=== PATIENT | female | born 1960 | race Caucasian/White ===

== ENCOUNTER 2018-05-08 14:42 | Emergency (ER) | payer MEDICARE, MEDICAID ==
[~2018-05-08] VITALS: Ht 160 cm; Wt 57.3 kg
[2018-05-08 14:44] VITALS: Ht 160 cm; Wt 57.3 kg
[2018-05-08] MEDS ORDERED: METOPROLOL TART50 MG PO (14:48)
[2018-05-08] MEDS ORDERED: ZOLOFT100 MG PO (14:48)
[2018-05-08] MEDS ORDERED: CATAPRES0.1 MG PO (14:48)
[2018-05-08] MEDS ORDERED: NORVASC10 MG PO (14:48)
[2018-05-08] MEDS ORDERED: ALENDRONATE SOD10 MG PO (14:49)
[2018-05-08] MEDS ORDERED: NORCO 10-325 TA1 TAB (14:49)
[2018-05-08] MEDS ORDERED: XANAX1 MG PO (14:49)
[2018-05-08 15:15] LABS: BASOPHILS 0.5 % (0-2); EOSINOPHILS 1.4 % (0-7); HEMATOCRIT 40.1 % (36.0-48.0); HEMOGLOBIN 13.5 g/dL (12-16); IMMATURE GRANULOCYTES 0.1 % (0-5); LYMPHOCYTES 29.2 % (15-50); MCH 29.6 pg (26.0-34.0); MCHC 33.7 g/dL (31.0-37.0); MCV 87.9 fL (80.0-100.0); MEAN PLATELET VOLUME 9.3 fL (7.4-10.4); MONOCYTES 8.6 % (2-11); NEUTROPHILS 60.2 % (40-80); PLATELET COUNT 213 10x3/uL (130-400); RBC 4.56 10x6/uL (4.00-5.40); RDW 13.6 % (11.5-14.5); WBC 7.9 10x3/uL (4.8-10.8)
[2018-05-08 15:31] LABS: ALBUMIN 4.2 g/dL (3.4-5.0); ALKALINE PHOSPHATASE 87 U/L (46-116); ALT (SGPT) 51 U/L (10-68); BILIRUBIN - TOTAL 0.36 mg/dL (0.2-1.3); CALC OSMOLALITY 271 mosm/kg (275-300); CALCIUM 9.3 mg/dL (8.5-10.1); CARBON DIOXIDE 24.9 mmol/L (21.0-32.0); CHLORIDE - SERUM 101 mmol/L (98-107); CREATININE - SERUM 1.1 mg/dL (0.6-1.3); POTASSIUM - SERUM 3.9 mmol/L (3.5-5.1); PROTEIN - SERUM 7.8 g/dL (6.4-8.2); SODIUM 137 mmol/L (136-145); UREA NITROGEN 13 mg/dL (7-18); eGFR NON AFRICAN AMERICAN 54 mL/min (90-120)
[2018-05-08 15:32] LABS: GLUCOSE 69 mg/dL (74-106)
[2018-05-08 15:40] LABS: CKMB 10.2 U/L (0.0-3.6)
[2018-05-08 17:54] LABS: CREATINE KINASE 2164 UL (21-215); TROPONIN-I < 0.017 ng/mL (0.000-0.060)
[2018-05-08 17:55] LABS: CKMB 10.2 U/L (0.0-3.6)
[2018-05-08 19:50] VITALS: BP 132/85
== END 2018-05-08 19:51 | disposition home or self-care (01) ==
LOC: D.ER 14:42
PROVIDERS: Family Medicine
DX: R74.8 Abnormal levels of other serum enzymes (principal); E74.04 McArdle disease; I10 Essential (primary) hypertension

== ENCOUNTER 2018-08-27 19:54 | Observation (INO) | payer MEDICARE, MEDICAID ==
[~2018-08-27] VITALS: Ht 160 cm; Wt 54.5 kg
[~2018-08-27 19:54] MED LIST: ALENDRONATE SOD10 MG PO; CATAPRES0.1 MG PO; METOPROLOL TART50 MG PO; NORCO 10-325 TA1 TAB; NORVASC10 MG PO; XANAX1 MG PO; ZOLOFT100 MG PO
[2018-08-27 20:34] LABS: BASOPHILS 0.3 % (0-2); EOSINOPHILS 0.9 % (0-7); HEMATOCRIT 39.4 % (36.0-48.0); HEMOGLOBIN 13.5 g/dL (12-16); IMMATURE GRANULOCYTES 0.2 % (0-5); LYMPHOCYTES 28.6 % (15-50); MCH 30.8 pg (26.0-34.0); MCHC 34.3 g/dL (31.0-37.0); MEAN PLATELET VOLUME 9.1 fL (7.4-10.4); MONOCYTES 8.1 % (2-11); NEUTROPHILS 61.9 % (40-80); RBC 4.38 10x6/uL (4.00-5.40); RDW 13.6 % (11.5-14.5); WBC 9.8 10x3/uL (4.8-10.8)
[2018-08-27 20:37] LABS: APPEARANCE CLEAR (CLEAR); BILIRUBIN NEGATIVE (NEGATIVE); COLOR YELLOW (YELLOW); GLUCOSE NEGATIVE (NEGATIVE); KETONE NEGATIVE (NEGATIVE); NITRITE NEGATIVE (NEGATIVE); PROTEIN NEGATIVE (NEGATIVE); SPECIFIC GRAVITY 1.015 (1.005-1.020); UROBILINOGEN NORMAL (NORMAL)
[2018-08-27 20:39] LABS: BACTERIA FEW /hpf (NONE SEEN); RED CELLS - URINE 0-5 /hpf (0-5); WHITE CELLS - URINE OCC /hpf (0-5)
[2018-08-27 21:12] LABS: ALBUMIN 4.1 g/dL (3.4-5.0); ALKALINE PHOSPHATASE 92 U/L (46-116); ALT (SGPT) 40 U/L (10-68); CALC OSMOLALITY 281 mosm/kg (275-300); CARBON DIOXIDE 24.3 mmol/L (21.0-32.0); CHLORIDE - SERUM 104 mmol/L (98-107); CREATININE - SERUM 0.9 mg/dL (0.6-1.3); GLUCOSE 101 mg/dL (74-106); POTASSIUM - SERUM 3.8 mmol/L (3.5-5.1); PROTEIN - SERUM 7.5 g/dL (6.4-8.2); SODIUM 141 mmol/L (136-145); UREA NITROGEN 16 mg/dL (7-18); eGFR NON AFRICAN AMERICAN 68 mL/min (90-120)
[2018-08-27 21:19] LABS: PLATELET COUNT 274 10x3/uL (130-400)
[2018-08-27 21:32] LABS: CKMB 4.1 U/L (0.0-3.6); CREATINE KINASE 1724 UL (21-215)
[2018-08-27 22:31] VITALS: BP 138/85
--- NOTE | 2018-08-27 23:08 | NUR ---
PT REPORT CALLED TO NURSE LISA.
--- NOTE | 2018-08-27 23:30 | NUR ---
PT ARRIVED TO FLOOR VIA WHEELCHAIR. AMBULATED TO BED WITHOUT DIFFICULTY. STATES PAIN 8/10 IN LEGS, JUST RECIEVED MORPHINE IN ER. ALERT AND ORIENTED. STATES SHE HAS BEEN HAVING SOME WEAKNESS. IV RIGHT WRIST INFUSING NS @ 125. WITHOUT NEEDS AT THIS TIME. CL IN REACH, WILL CONT TO MONITOR
[2018-08-27 23:49] VITALS: Ht 160 cm; Wt 54.5 kg
[2018-08-28] VITALS: BP 92/53
[2018-08-28 03:00] VITALS: BP 123/73
[2018-08-28 07:35] LABS: CREATINE KINASE 1078 UL (21-215)
--- NOTE | 2018-08-28 07:45 | NUR ---
PT RESTING IN BED. AROUSED BY VERBAL STIMULI. DENIES ANY NEEDS. NO S/S OF ACUTE DISTRESS. CL IN PLACE.
[2018-08-28 08:49] VITALS: BP 128/84
[2018-08-28 12:23] LABS: BASOPHILS 0.4 % (0-2); EOSINOPHILS 1.7 % (0-7); HEMATOCRIT 36.5 % (36.0-48.0); HEMOGLOBIN 12.1 g/dL (12-16); IMMATURE GRANULOCYTES 0.3 % (0-5); LYMPHOCYTES 35.1 % (15-50); MCH 30.4 pg (26.0-34.0); MCHC 33.2 g/dL (31.0-37.0); MCV 91.7 fL (80.0-100.0); MEAN PLATELET VOLUME 9.3 fL (7.4-10.4); MONOCYTES 10.5 % (2-11); PLATELET COUNT 245 10x3/uL (130-400); RBC 3.98 10x6/uL (4.00-5.40); RDW 13.9 % (11.5-14.5)
[2018-08-28 12:29] LABS: WBC 7.3 10x3/uL (4.8-10.8)
--- NOTE | 2018-08-28 12:40 | NUR ---
CO MARCUS. SPOKE WITH Day BERNAL APN WHO GAVE VO FOR TYLENOL 650MG Q 6 PRN. NO S/S OF ACUTE DISTRESS. CL IN PLACE.
[2018-08-28 12:43] LABS: ALBUMIN 3.4 g/dL (3.4-5.0); ALKALINE PHOSPHATASE 78 U/L (46-116); ALT (SGPT) 37 U/L (10-68); BILIRUBIN - TOTAL 0.36 mg/dL (0.2-1.3); CALC OSMOLALITY 285 mosm/kg (275-300); CALCIUM 8.2 mg/dL (8.5-10.1); CARBON DIOXIDE 22.9 mmol/L (21.0-32.0); CHLORIDE - SERUM 107 mmol/L (98-107); CREATININE - SERUM 0.7 mg/dL (0.6-1.3); GLUCOSE 105 mg/dL (74-106); POTASSIUM - SERUM 3.5 mmol/L (3.5-5.1); PROTEIN - SERUM 6.3 g/dL (6.4-8.2); SODIUM 143 mmol/L (136-145); UREA NITROGEN 14 mg/dL (7-18); eGFR NON AFRICAN AMERICAN > 90 mL/min (90-120)
[2018-08-28 13:39] VITALS: BP 146/85
--- NOTE | 2018-08-28 13:44 | MORECARE ---
CASE MANAGEMENT DISCHARGE SUMMARY PATIENT: RHONDA GARCÍA UNIT: [id number] ADM DATE: 08/27/18 AGE: 58 : 60 SEX: F ROOM/BED: D.2203 AUTHOR: LIS DOUGLAS PHYSICIAN: REFERRING PHYSICIAN: JOI BRIAN MD DATE OF SERVICE: 08/28/18 Discharge Plan Patient Name: RHONDA GARCÍA [facility] [facility] 1960 Planned Disposition: Home Anticipated Discharge Date: Discharge Date: Expected LOS: Initial Reviewer: KILLIAN Initial Review Date: 08/28/2018 Generated: 08/28/18 2:44 pm DCPIA - Discharge Planning Initial Assessment Updated by KILLIAN: Naida Chery on 08/28/18 1:43 pm * Is the patient Alert and Oriented? Yes * How many steps to enter\exit or inside your home? * PCP CORDELIA * Pharmacy [facility] [address] * Preadmission Environment Home with Family * ADLs Independent * List name and contact numbers for known caregivers / representatives who currently or will assist patient after discharge: SISTER SHERYL BARRETT [phone] OR SON GIGI GARCÍA [phone] * Verbal permission to speak to the caregivers and representatives has been obtained from the patient. N/A * Additional services required to return to the preadmission environment? No * Can the patient safely return to the preadmission environment? Yes * Has this patient been hospitalized within the prior 30 days at any hospital? No Patient Name: RHONDA GARCÍA Page [id number] at 1344 All edits/amendments must be made on the electronic document DICTATION DATE: 08/28/18 1343 ORGAN ASSEMBLER: RAKEL 08/28/18 1343 RPT#: [id number] DC DATE: STATUS: ADM IN [facility] [address] [place] [address] END OF REPORT
--- NOTE | 2018-08-28 13:51 | MORECARE ---
CASE MANAGEMENT DISCHARGE SUMMARY PATIENT: RHONDA GARCÍA UNIT: [id number] ADM DATE: 08/27/18 AGE: 58 : 60 SEX: F ROOM/BED: D.2203 AUTHOR: MISAELDOC PHYSICIAN: REFERRING PHYSICIAN: JOI BRIAN MD DATE OF SERVICE: 08/28/18 Discharge Plan Patient Name: RHONDA GARCÍA Facility: [facility]:[place] : 1960 Planned Disposition: Home Anticipated Discharge Date: Discharge Date: Expected LOS: Initial Reviewer: [email or web address] Initial Review Date: 08/28/2018 Generated: 08/28/18 2:51 pm Comments DCP- Discharge Planning Updated by [email or web address]: Naida Chery on 08/28/18 12:[address] RHONDA GARCÍA provided verbal consent to discuss current and ongoing needs with/in the presence of:Patient Name: RHONDA GARCÍA Admission Status: ER Accout number: [id number] Admission Date: 08-27-2018 : 1960 Admission Diagnosis: Attending: LILLIAN BRIAN Current LOS: 1 Anticipated DC Date: Planned Disposition: Home Primary Insurance: [facility] MEDICARE SOLUTIONS Discharge Planning Comments: CM MET WITH PT AFTER VERBAL CONSENT TO DO INITIAL CM ASSESSMENT. CM EXPLAINED THE ROLE OF A CM AND SERVICES AVAILABLE LIKE HOME HEALTH, REHAB AND DME. PT STATED HER PLAN IS TO RETURN HOME WITH SISTER. DENIES ANY CM NEEDS AT THIS TIME. SON OR SISTER WILL DRIVE HOME AT DC. PT STATES HER HOME IS A SAFE DC PLAN. CM WILL CONTINUE TO FOLLW DURING STAY Follow Up Rep: Naida Chery DCPIA - Discharge Planning Initial Assessment Updated by [email or web address]: Naida Chery on 08/28/18 1:43 pm * Is the patient Alert and Oriented? Yes * How many steps to enter\exit or inside your home? * PCP CORDELIA * Pharmacy [facility] [address] * Preadmission Environment Home with Family * ADLs Independent * List name and contact numbers for known caregivers / representatives who currently or will assist patient after discharge: SISTER SHERYL BARRETT [phone] OR SON GIGI GARCÍA [phone] * Verbal permission to speak to the caregivers and representatives has been obtained from the patient. N/A * Additional services required to return to the preadmission environment? No * Can the patient safely return to the preadmission environment? Yes * Has this patient been hospitalized within the prior 30 days at any hospital? No Last DP export: 08/28/18 12:44 p Patient Name: RHONDA GARCÍA Page [id number] at 1351 All edits/amendments must be made on the electronic document DICTATION DATE: 08/28/181349 WIRE PHOTO OPERATOR NEWS: RAKEL 08/28/18 135 RPT#: [id number] DC DATE: STATUS: ADM IN [facility] [address] [place] [address] END OF REPORT
[2018-08-28 17:09] VITALS: BP 116/68
--- NOTE | 2018-08-28 17:49 | NUR ---
PT SITTING UP IN BED EATING DINNER. NO S/S OF ACUTE DISTRESS. REPORTS VELAZQUEZ OF "3". NO S/S OF ACUTE DISTRESS. CL IN PLACE.
[2018-08-28 20:18] VITALS: BP 136/78
[2018-08-29 02:08] VITALS: BP 143/78
--- NOTE | 2018-08-29 05:03 | NUR ---
PT IN BED IN SUPINE POSITION. ALERT AND ORIENTED X4. RESPIRATIONS EVEN AND UNLABORED. VS STABLE AND AFEBRILE. NO VISUAL CUES OF DISTRESS NOTED. DENIES ANY OTHER NEEDS AT THIS TIME. BED LOW, SIDE RAILS UP X2. CALL LIGHT IN REACH. WILL CONTINUE TO MONITOR.
[2018-08-29 05:34] VITALS: BP 113/73
[2018-08-29 06:18] LABS: BASOPHILS 0.3 % (0-2); EOSINOPHILS 1.8 % (0-7); HEMATOCRIT 35.3 % (36.0-48.0); HEMOGLOBIN 11.9 g/dL (12-16); IMMATURE GRANULOCYTES 0.1 % (0-5); LYMPHOCYTES 30.4 % (15-50); MCH 29.9 pg (26.0-34.0); MCHC 33.7 g/dL (31.0-37.0); MEAN PLATELET VOLUME 9.5 fL (7.4-10.4); MONOCYTES 9.1 % (2-11); NEUTROPHILS 58.3 % (40-80); PLATELET COUNT 216 10x3/uL (130-400); RBC 3.98 10x6/uL (4.00-5.40); RDW 13.3 % (11.5-14.5); WBC 6.8 10x3/uL (4.8-10.8)
[2018-08-29 06:30] LABS: MCV 88.7 fL (80.0-100.0)
[2018-08-29 06:47] LABS: ALBUMIN 3.4 g/dL (3.4-5.0); ALKALINE PHOSPHATASE 74 U/L (46-116); ALT (SGPT) 36 U/L (10-68); BILIRUBIN - TOTAL 0.42 mg/dL (0.2-1.3); CALC OSMOLALITY 283 mosm/kg (275-300); CALCIUM 8.5 mg/dL (8.5-10.1); CARBON DIOXIDE 25.1 mmol/L (21.0-32.0); CHLORIDE - SERUM 108 mmol/L (98-107); CKMB 1.8 U/L (0.0-3.6); CREATINE KINASE 636 UL (21-215); CREATININE - SERUM 0.6 mg/dL (0.6-1.3); GLUCOSE 89 mg/dL (74-106); POTASSIUM - SERUM 3.5 mmol/L (3.5-5.1); PROTEIN - SERUM 6.3 g/dL (6.4-8.2); SODIUM 144 mmol/L (136-145); UREA NITROGEN 7 mg/dL (7-18); eGFR NON AFRICAN AMERICAN > 90 mL/min (90-120)
[2018-08-29 08:57] VITALS: BP 141/82
[2018-08-29] MEDS ORDERED: PROTONIX40 MG PO (12:01)
--- NOTE | 2018-08-29 13:29 | NUR ---
DC HOME VOICE UNDERSTANDING OF DC INSTRUCTION. IV DC. WAS IN STABLE CONDITION UPON DEPARTURE.
--- NOTE | 2018-08-30 14:59 | MORECARE ---
CASE MANAGEMENT DISCHARGE SUMMARY PATIENT: RHONDA GARCÍA UNIT: [id number] ADM DATE: 08/27/18 AGE: 58 : 60 SEX: F ROOM/BED: D.2203 AUTHOR: MISAEL,DOC PHYSICIAN: REFERRING PHYSICIAN: JOI BRIAN MD DATE OF SERVICE: 08/30/18 Discharge Plan Patient Name: RHONDA GARCÍA Facility: [facility]:[place] : 1960 Planned Disposition: Home Anticipated Discharge Date: Discharge Date: 08/29/2018 Expected LOS: 0 Initial Reviewer: [email or web address] Initial Review Date: 08/28/2018 Generated: 08/30/18 3:59 pm DCP- Discharge Planning Updated by [email or web address]: Naida Chery on 08/28/18 12:[address] RHONDA GARCÍA provided verbal consent to discuss current and ongoing needs with/in the presence of:Patient Name: RHONDA GARCÍA Admission Status: ER Accout number: [id number] Admission Date: 08-27-2018 : 1960 Admission Diagnosis: Attending: LILLIAN BRIAN Current LOS: 1 Anticipated DC Date: Planned Disposition: Home Primary Insurance: [facility] MEDICARE SOLUTIONS Discharge Planning Comments: CM MET WITH PT AFTER VERBAL CONSENT TO DO INITIAL CM ASSESSMENT. CM EXPLAINED THE ROLE OF A CM AND SERVICES AVAILABLE LIKE HOME HEALTH, REHAB AND DME. PT STATED HER PLAN IS TO RETURN HOME WITH SISTER. DENIES ANY CM NEEDS AT THIS TIME. SON OR SISTER WILL DRIVE HOME AT DC. PT STATES HER HOME IS A SAFE DC PLAN. CM WILL CONTINUE TO FOLLW DURING STAY Upholsterer Helper: Naida Chery DCPIA - Discharge Planning Initial Assessment Updated by [email or web address]: Naida Chery on 08/28/18 1:43 pm * Is the patient Alert and Oriented? Yes * How many steps to enter\exit or inside your home? * PCP CORDELIA * Pharmacy [facility] [address] * Preadmission Environment Home with Family * ADLs Independent * List name and contact numbers for known caregivers / representatives who currently or will assist patient after discharge: SISTER SHERYL BARRETT [phone] OR SON GIGI GARCÍA [phone] * Verbal permission to speak to the caregivers and representatives has been obtained from the patient. N/A * Additional services required to return to the preadmission environment? No * Can the patient safely return to the preadmission environment? Yes * Has this patient been hospitalized within the prior 30 days at any hospital? No Coverage Notice Reviewer: [id number] Anderson Chery Notice Issued Date-Time: 08/29/2018 13:00 Notice Type: IM Discharge Notice Notice Delivered To: Patient Relationship to Patient: Self Full Stack Java Developer Name: Delivery Method: HAND - Hand Delivered Catina Days: Prior Verbal Notification: Recipient Understood Notice: Yes Recipient Signature: Yes Med Rec Note Co-signed by Attending: Coverage Notice Comment: Last DP export: 08/28/18 12:51 p Patient Name: RHONDA GARCÍA Page [id number] at 1451 All edits/amendments must be made on the electronic document DICTATION DATE: 08/30/181458 COPY DIRECTOR: RAKEL 08/30/181458 RPT#: [id number] DC DATE:08/29/18 STATUS: DIS IN [facility] [address] [place] [address] END OF REPORT
== END 2018-08-29 13:33 | disposition home or self-care (01) ==
LOC: D.ER 19:54 → OBSVTIME 21:56 → D.MS 21:56
PROVIDERS: Emergency Medicine; ADMIT Emergency Medicine; ATTEND Emergency Medicine
DX: M62.82 Rhabdomyolysis (principal); E74.01 von Gierke disease; I10 Essential (primary) hypertension; Z87.891 Personal history of nicotine dependence